=== PATIENT | male | born 1985 | race Caucasian/White ===

== ENCOUNTER 2017-08-09 18:57 | Emergency (ER) | payer MEDICAID, OTHER ==
--- NOTE | 2017-08-09 19:51 | EDPHY ---
H & P Stated Complaint: ROLLED ANKLE TODAY IN HOLE PLAYING [employer] Time Seen by Provider: 08/09/17 19:51 HPI/ROS: CHIEF COMPLAINT: Right ankle and foot pain HISTORY OF PRESENT ILLNESS: 31-year-old male arrives via private vehicle complaining of acute right ankle and foot pain after he was running, stepped in a hole rolled his foot. No fall from height. He is unable to bear weight secondary to pain. No proximal tibia or fibula pain. No fibular head pain. No knee pain. No paresthesia. PHYSICAL EXAM (Prior to examination, patient consented to physical exam, hands were washed and my usual and customary physical exam procedures followed) 1) GENERAL: Well-developed, well-nourished, alert and oriented. Appears to be in no acute distress. 2) HEAD: Normocephalic 3) HEENT: Pupils equal, round, reactive to light bilaterally. 4) LUNGS: Breathing comfortably. 5) MUSCULOSKELETAL: Soft tissue swelling to the lateral malleolus. Tender to palpation 5th metatarsal. proximal tibia and fibula nontender . negative Bearden test, compartments soft 6) SKIN: Intact. No break. No tenting. 7) VASCULAR: DP,PT pulses and cap refill present and brisk DIFFERENTIAL DIAGNOSIS: in no particular order including but not limited to fracture, sprain, compartment syndrome Procedure: Crutches indications for crutch use discussed with patient. Patient fitted for crutches by ER staff. Observed ambulating with crutches. I think the patient has the capacity to safely use crutches. Usual and customary crutch walking precautions provided Procedure: Splint A [place] boot splint was applied by ER management services technician. After application of the splint I returned and re-examined the patient. The splint was adequately immobilizing the joint and distal to the splint the patient's circulation and sensation were intact. Patient shows no signs of compartment syndrome. Was given orthopedic precautions. - Personal History Current Tetanus/Diphtheria Vaccine: Yes - Medical/Surgical History Hx Asthma: No Hx Chronic Respiratory Disease: No Hx Diabetes: No Hx Cardiac Disease: No Hx Renal Disease: No Hx Cirrhosis: No Hx Alcoholism: No Hx HIV/AIDS: No Hx Splenectomy or Spleen Trauma: No Other PMH: BIPOLAR, ADHD, PTSD, INSOMNIA - Social History Smoking Status: Current every day smoker Constitutional: Initial Vital Signs Temperature (C) 36.5 C 08/09/17 19:16 Heart Rate 78 08/09/17 19:16 Respiratory Rate 18 08/09/17 19:16 Blood Pressure 108/64 08/09/17 19:16 O2 Sat (%) 95 08/09/17 19:16 O2 Delivery Mode Room Air Allergies/Adverse Reactions: No Known Allergies Allergy (Unverified 08/09/17 19:15) Home Medications: Medication Instructions Recorded Ibuprofen [Motrin (*)] 600 mg PO Q6 #15 tab 08/09/17 Medical Decision Making - Diagnostics Imaging Results: Xray of the right foot and ankle interpreted by myself: no definitive acute osseous abnormality Imaging: I viewed and interpreted images myself ED Course/Re-evaluation: Re-evaluation with serial exams. Most recently at 8:20 p.m.. Remains neurovascularly intact. Soft compartments. No evidence of compartment syndrome. Discussed his imaging results. Plan will be discharged with usual and customary orthopedic precautions instructions. Care of patient under supervision of secondary supervising physician Dr boss Departure - Departure Disposition: Home, Routine, Self-Care Clinical Impression: Right ankle sprain Qualifiers: Encounter type: initial encounter Involved ligament of ankle: other ligament Qualified Code(s): S93.491A - Sprain of other ligament of right ankle, initial encounter Right foot sprain Qualifiers: Encounter type: initial encounter Qualified Code(s): S93.601A - Unspecified sprain of right foot, initial encounter Condition: Good Instructions: Ankle Sprain (ED), Foot Sprain (ED) Additional Instructions: Return to the ER immediately if you experience discoloration, have worsening pain, numbness, tingling, or any other symptoms that concern you. If you received x-rays in the emergency department today, be advised, that ligamentous , tendon, muscular, and other non-bony injury cannot be fully ruled out. Try to keep your affected extremity elevated above the level of your chest, and keep cold packs on the affected area, for the next 48 hours. Referrals: Compa Romeo MD [Medical Doctor] - As per Instructions Prescriptions: Ibuprofen [Motrin (*)] 600 mg PO Q6 #15 tab
[2017-08-09 20:46] VITALS: BP 112/77
== END 2017-08-09 20:50 | disposition home or self-care (01) ==
DX: S93.491A Sprain of other ligament of right ankle, initial encounter (principal); S93.601A Unspecified sprain of right foot, initial encounter; F17.200 Nicotine dependence, unspecified, uncomplicated; X50.9XXA Other and unspecified overexertion or strenuous movements or postures, initial encounter; Y99.8 Other external cause status; Y93.02 Activity, running
CPT/HCPCS: L4386

== ENCOUNTER 2018-06-26 10:22 | Emergency (ER) | payer MEDICAID ==
[2018-06-26 10:28] VITALS: BP 133/79
--- NOTE | 2018-06-26 11:18 | EDPHY ---
H & P Time Seen by Provider: 06/26/18 11:17 HPI/ROS: CHIEF COMPLAINT: [ ] HISTORY OF PRESENT ILLNESS: [must have 4 elements] REVIEW OF SYSTEMS: Eye:[ no change in vision] ENT: [no sore throat] Cardiac: [no chest pain or syncope] Pulmonary: [no cough or SOB] Abdomen: [no vomiting, diarrhea, abdominal pain] Musculoskeletal: [no back pain] Skin: [no rash] Neuro: [no headache] Constitutional: [no fever] : [no urinary symptoms] A comprehensive 10 point review of systems is otherwise negative aside from elements mentioned in the history of present illness. PAST MEDICAL HISTORY: Social history: General Appearance: [Alert and conversant, cooperative.] Eyes: [No scleral icterus.] ENT, Mouth: [Normal mucous membranes.] Respiratory: [Normal respiratory effort, breath sounds equal, lungs are clear to auscultation.] Cardiovascular: [Regular rate and rhythm.] Gastrointestinal: [Abdomen is soft and non tender.] Neurological: [Alert, face symmetric, normal motor and sensory in extremities. ] Skin: [Warm and dry, no rashes.] Musculoskeletal: [No peripheral edema.] Psychiatric: [Not agitated.] Emergency Department course/MDM: Smoking Status: Current every day smoker Constitutional: Initial Vital Signs Temperature (C) 36.5 C 06/26/18 10:24 Heart Rate 92 06/26/18 10:24 Respiratory Rate 16 06/26/18 10:24 Blood Pressure 133/79 H 06/26/18 10:24 O2 Sat (%) 97 06/26/18 10:24 O2 Delivery Mode Room Air Allergies/Adverse Reactions: No Known Allergies Allergy (Unverified 08/09/17 19:15) Home Medications: Medication Instructions Recorded Ibuprofen [Motrin (*)] 600 mg PO Q6 #15 tab 08/09/17 Departure - Departure Referrals: Patient,NotPresent [Primary Care Provider] - As per Instructions
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
== END 2018-06-26 12:55 ==
LOC: EEVIPCON 10:22
DX: S50.312A Abrasion of left elbow, initial encounter (principal); S50.311A Abrasion of right elbow, initial encounter; M25.522 Pain in left elbow; M25.562 Pain in left knee; Y35.813A Legal intervention involving manhandling, suspect injured, initial encounter; Y92.89 Other specified places as the place of occurrence of the external cause; F17.210 Nicotine dependence, cigarettes, uncomplicated; Z59.0 Homelessness